=== PATIENT | female | born 1995 | race Caucasian/White ===

== ENCOUNTER 2025-01-07 21:17 | Emergency (ER) | payer OTHER, SELFPAY ==
--- NOTE | ~2025-01-07 | CT_ITS ---
CLINICAL HISTORY: RLQ pain, appy? CT abdomen and pelvis with contrast Comparison: None Findings: The lung bases are clear. The gallbladder is unremarkable. No biliary ductal dilatation. The liver, spleen, pancreas and adrenal glands are unremarkable. Small cortical scar of the upper pole of the left kidney. Normal enhancement of bilateral kidneys with no ureteral stones and no hydronephrosis or hydroureter. No perinephric stranding. No bowel obstruction, pneumoperitoneum, or pneumatosis. The appendix is not identified. Subcentimeter right lower quadrant mesenteric nodes nonspecific. No pericecal inflammatory changes. Uterus appears unremarkable. 2.3 cm and 2.6 cm right ovarian cysts. Small left ovarian follicle. Urinary bladder nearly empty with apparent wall thickening likely due to bladder decompression. Abdominal aorta normal in size. No acute fracture. L3 limbus vertebra. IMPRESSION: 1. Appendix is not identified. No pericecal inflammatory changes. 2. Subcentimeter right lower quadrant lymph nodes nonspecific and could be reactive or represent adenitis. 3. 2.3 cm and 2.6 cm right ovarian cysts. This document has been electronically signed by: Amber Charles MD on 01/08/2025 02:02:35
[2025-01-07 21:24] VITALS: BP 104/62; PULSE 62; RESP 16; TEMP 36.2; O2SAT 98; BMI 19.8
[2025-01-07 22:28] VITALS: BP 103/62; PULSE 57; TEMP 36.8; O2SAT 99
--- NOTE | 2025-01-07 22:53 | PC.NURSE ---
assumed care of pt, abd pain present, IV inserted into L AC no issues, labs obtained,respirations even and unlabored, VSS
[2025-01-07 22:55] LABS: MANUAL DIFF FLAG NO
[2025-01-07 23:17] LABS: Alanine Aminotransferase 14 U/L (0-31); Albumin Level 4.7 g/dL (3.5-5.0); Alkaline Phosphatase 53 U/L (39-117); Anion Gap 11 (12-20); Aspartate Amino Transferase 21 U/L (5-31); Bilirubin Total 0.8 mg/dL (0.0-1.0); Blood Urea Nitrogen 12 mg/dL (9-16); Calcium 9.7 mg/dL (8.4-10.2); Carbon Dioxide 29 mmol/L (22-29); Chloride 104 mmol/L (96-108); Estimated Glomerular Filt Rate > 60; Glucose Random 125 mg/dL (60-115); Lipase 23 U/L (8-78); Potassium 3.8 mmol/L (3.3-5.1); Sodium 140 mmol/L (135-145)
[2025-01-07 23:18] LABS: Basophils Percent Auto 0.3 % (0-2); Eosinophils Percent Auto 0.4 % (0-4); Hematocrit 43.4 % (37.0-47.0); Hemoglobin 15.2 g/dl (12.0-16.0); Imm Gran Abs Auto 0.04 X10*3/uL (0.00-0.03); Imm Gran Pct Auto 0.4 % (0.0-0.4); Lymphocytes Absolute Auto 1.5 X10*3/uL (1.2-4.9); Lymphocytes Percent Auto 13.9 % (20-40); Mean Corpuscular Hemoglobin 30.4 pg (27.0-33.0); Mean Corpuscular Volume 86.8 fL (80.0-98.0); Mean Platelet Volume 9.5 fL (9.4-12.3); Monocytes Absolute Auto 0.7 X10*3/uL (0.1-1.2); Monocytes Percent Auto 6.2 % (2-11); Neutrophils Absolute Auto 8.5 x10*3/uL (2.0-8.3); Neutrophils Percent Auto 78.8 % (45-73); Platelet Count 391 X10*3/uL (160-400); Red Cell Distribution Width 12.7 % (11.0-16.0); White Blood Count 10.8 X10*3/uL (4.8-10.8)
[2025-01-08] MEDS: ondansetron HCL 4 MG/2 ML VIAL IVPUSH (00:38)
[2025-01-08] MEDS: Ketorolac Tromethamine 15 MG/ML VIAL IVPUSH (00:38)
[2025-01-08] MEDS: 0.9 % Sodium Chloride 1,000 ML 999 ML IV (00:38)
[2025-01-08 00:47] LABS: Appearance Urine Clear; Color Urine Yellow; Glucose Urine UA Negative (Negative); Leukocyte Esterase Urine Trace (Negative); Nitrite Urine Negative (Negative); Specific Gravity - Urine 1.015 (1.005-1.025); UMIC TRIGGER UACC YES; Urine Blood Trace (Negative); Urine Ketones 40 mg/dL (Negative); Urine Protein Trace mg/dL (Neg-Trace)
[2025-01-08 00:48] LABS: HCG Quantitative < 2 mIU/mL
[2025-01-08 00:52] LABS: Bacteria Urine Trace (None Seen); Hyaline Casts Urine 0-2 /LPF (0-2); RBC Urine 0-2 /HPF (0-2); UACC Culture Trigger YES
[2025-01-08] MEDS: iohexoL 350 MG/ML 100 ML INFUS..BTL 85 ML IV (01:08)
[2025-01-08 01:28] VITALS: BP 93/47; PULSE 72; RESP 16; TEMP 36.7; O2SAT 98
--- NOTE | 2025-01-08 02:53 | ED_ITS ---
HPI - General Adult General Chief complaint: Abdominal Pain Stated complaint: Abdominal pain Time Seen by Provider: 01/07/25 23:55 Source: patient Limitations: no limitations History of Present Illness ED Provider: Pily Martinez PA-C HPI narrative: 29-year-old female presents with the abdominal pain since this morning. Patient having right lower abdominal discomfort, that radiates to right low back and across to the suprapubic region. Pain worse with movement. The pain also fluctuates in intensity, becoming severe at times. Patient developed episodes of nausea vomiting. Denies history of kidney stones, dysuria or obvious hematuria. Denies history of ovarian cysts. No diarrhea or fever. Related Data Previous Rx's ?Medication ?Instructions ?Recorded ketorolac 10 mg tablet 10 mg PO Q6H PRN pain #20 tabs 01/08/25 Allergies Allergy/AdvReac Type Severity Reaction Status Date / Time amoxicillin AdvReac Anaphylaxis Verified 01/07/25 21:28 balofloxacin AdvReac Hives Verified 01/07/25 21:29 cephalexin [From Keflex] AdvReac Hives Verified 01/07/25 21:29 Review of Systems 2 Review of Systems: Yes all other systems are reviewed and are negative Constitutional: Constitutional: Denies fatigue and Denies fever(s) Cardiovascular: Cardiovascular: Denies chest pain and Denies dyspnea Respiratory: Respiratory: Denies dyspnea Gastrointestinal: Gastrointestinal: Reports abdominal pain, Denies constipation, Denies diarrhea, Reports nausea and Reports vomiting Genitourinary: Genitourinary: Denies hematuria, Denies dysuria, Denies pelvic pain and Denies vaginal discharge Endocrine: Endocrine: Denies fatigue PMF Past Medical History Attestation statement: The following information was validated with the patient. Social History Social History Smoked in Last 30 Days: No Use of substances other than those prescribed or required for medical reasons: Yes Substance Use Type: Hallucinogens Advance Directives: No Do you have a plan to hurt others: No Plan Patient : No Physical Exam ED Vital Signs: Vital Signs - 24 hr 01/07/25 21:24 01/07/25 22:28 01/08/25 01:28 Temperature 97.1 F 98.2 F 98.0 F Pulse Rate 62 57 72 Respiratory Rate 16 16 Blood Pressure 104/62 103/62 93/47 L Pulse Oximetry 98 99 98 Oxygen Delivery Method Room Air Room Air Room Air BMI result Body Mass Index 19.8 Const Other: Alert Orientation/consciousness: patient oriented x3 Resp Effort & Inspection: normal respiratory effort Cardio Other: normal peripheral perfusion GI Other: abdomen is soft, nondistended, mild to moderate tenderness that has focal to the right lower abdomen, no guarding, there was some degree of referred pain from left to right abdomen Skin Other: warm dry no rash Neuro General: patient oriented x3, gait normal, no focal motor deficits and CN's II- XI intact bilaterally Psych Other: cooperative Medications Administered Discontinued Medications Generic Name Dose Route Start Last Admin Trade Name Freq PRN Reason Stop Dose Admin Sodium Chloride 1,000 mls @ 999 mls/hr 01/08/25 00:45 01/08/25 00:38 Ns IV 01/08/25 01:45 999 mls/hr .Q1H1M SARAH Administration Iohexol 85 ml 01/08/25 01:07 01/08/25 01:08 Iohexol 350 Mg/Ml 100 Ml Infus..Btl IV 01/08/25 01:08 85 ml ONCE ONE Administration Ketorolac Tromethamine 15 mg 01/08/25 00:31 01/08/25 00:38 Ketorolac Tromethamine 15 Mg/Ml Vial IVPUSH 01/08/25 00:32 15 mg ONCE ONE Administration Ondansetron HCl 4 mg 01/08/25 00:31 01/08/25 00:38 Ondansetron Hcl 4 Mg/2 Ml Vial IVPUSH 01/08/25 00:32 4 mg ONCE ONE Administration Medical Decision Making Medical Decision Making [facility] Narrative: 29-year-old female presents with the abdominal pain since this morning. Patient having right lower abdominal discomfort, that radiates to right low back and across to the suprapubic region. Pain worse with movement. The pain also fluctuates in intensity, becoming severe at times. Patient developed episodes of nausea vomiting. Denies history of kidney stones, dysuria or obvious hematuria. Denies history of ovarian cysts. No diarrhea or fever. no chronic issues History: Per patient I have considered the following differential diagnoses: Appendicitis, renal colic, torsion, sigmoid diverticulitis Plan: Given distribution of discomfort in nature of symptoms, I am most concerned for appendicitis. We will obtain a CT scan, giving Toradol, Zofran and IV fluid. The patient is having colicky pain, this could be torsion versus renal colic as well, she is passing trace hematuria in her urinalysis. Doubtful to be sigmoid diverticulitis she is not having any diarrhea. I have independently reviewed the following tests: Labs: No overall leukocytosis, left shift noted, no electrolyte abnormality, not , urine not infected CT abdomen and pelvis:MPRESSION: 1. Appendix is not identified. No pericecal inflammatory changes. 2. Subcentimeter right lower quadrant lymph nodes nonspecific and could be reactive or represent adenitis. 3. 2.3 cm and 2.6 cm right ovarian cysts. Lab Data 01/07/25 22:46 01/07/25 22:46 Labs: Lab Results 01/07/25 01/08/25 Range/Units 22:46 00:39 WBC 10.8 (4.8-10.8) X10*3/uL RBC 5.00 (4.20-5.50) X10*6/uL Hgb 15.2 (12.0-16.0) g/dl Hct 43.4 (37.0-47.0) % MCV 86.8 (80.0-98.0) fL MCH 30.4 (27.0-33.0) pg MCHC 35.0 (31.0-35.0) g/dl RDW 12.7 (11.0-16.0) % Plt Count 391 (160-400) X10*3/uL MPV 9.5 (9.4-12.3) fL Immature Gran % (Auto) 0.4 (0.0-0.4) % Neut % (Auto) 78.8 H (45-73) % Lymph % (Auto) 13.9 L (20-40) % [place] % (Auto) 6.2 (2-11) % Eos % (Auto) 0.4 (0-4) % Baso % (Auto) 0.3 (0-2) % Lymph # (Auto) 1.5 (1.2-4.9) X10*3/uL [place] # (Auto) 0.7 (0.1-1.2) X10*3/uL Eos # (Auto) 0.0 (0.0-0.4) X10*3/uL Baso # (Auto) 0.0 (0.0-0.2) X10*3/uL Abs Immat Gran (auto) 0.04 H (0.00-0.03) X10*3/uL Absolute Neuts (auto) 8.5 H (2.0-8.3) x10*3/uL Absolute Nucleated RBC 0.000 (0.0-0.012) X10*3/uL Nucleated RBC % (auto) 0.0 (0.0-0.2) /100WBC Sodium 140 (135-145) mmol/L Potassium 3.8 (3.3-5.1) mmol/L Chloride 104 (96-108) mmol/L Carbon Dioxide 29 (22-29) mmol/L Anion Gap 11 L (12-20) BUN 12 (9-16) mg/dL Creatinine 0.82 (0.5-1.4) mg/dL Estim Creat Clear Calc 95.0 Estimated GFR > 60 Random Glucose 125 H (60-115) mg/dL Calcium 9.7 (8.4-10.2) mg/dL Total Bilirubin 0.8 (0.0-1.0) mg/dL AST 21 (5-31) U/L ALT 14 (0-31) U/L Alkaline Phosphatase 53 (39-117) U/L Total Protein 8.0 (6.5-8.0) g/dL Albumin 4.7 (3.5-5.0) g/dL Lipase 23 (8-78) U/L Beta HCG, Quant < 2 mIU/mL Urine Color Yellow Urine Appearance Clear Urine pH 6.0 (5.0-9.0) Ur Specific [place] 1.015 (1.005-1.025) Urine Protein Trace (Neg-Trace) mg/dL Urine Glucose (UA) Negative (Negative) mg/dL Urine Ketones 40 (Negative) mg/dL Urine Blood Trace H (Negative) Urine Nitrite Negative (Negative) Ur Leukocyte Esterase Trace H (Negative) Urine RBC 0-2 (0-2) /HPF Urine WBC 6-10 H (0-5) /HPF Ur Squamous Epith Cells 3-5 (0-2) /HPF Urine Bacteria Trace (None Seen) Hyaline Casts 0-2 (0-2) /LPF Discharge Plan Discharge Clinical Impression: Ovarian cyst Patient Disposition: Home, Self-Care Instructions: Ovarian Cyst (ED) Additional Instructions: all of your labs were within normal limits. You were found to have 2 ovarian cysts, they measure 2.3 cm and 2.6 cm. See home care instructions. Use the ketorolac as needed for pain, take it with food. You need to follow up with your digital field service technician, they will likely schedule an outpatient transvaginal ultrasound as further assessment of the ovarian cysts. Prescriptions: New ketorolac 10 mg tablet 10 mg PO Q6H PRN (Reason: pain) Qty: 20 0RF Rx Instructions: maximum total duration of 5 days from all oral, intranasal, or parenteral formulations. The patient had an IV dose of toradol here in the emergency room Print Language: Yakut
[2025-01-08 03:11] VITALS: BP 121/75; PULSE 63; RESP 16; TEMP 36.8; O2SAT 99
[2025-01-08 03:12] VITALS: BP 121/75; PULSE 63; RESP 16; TEMP 36.8; O2SAT 99
== END 2025-01-08 03:13 | disposition home or self-care (01) ==
PROVIDERS: Physician Assistant Medical; Emergency Provider Emergency Medicine; PCP Family Medicine
DX: N83.201 Unspecified ovarian cyst, right side (principal); R10.31 Right lower quadrant pain
CPT/HCPCS: 36415; 74177; 80053; 81001; 83690; 84702; 85025; 87086; 87147; 96361; 96374; 96375; 99284; 99285; J1885; J2405; Q9967

== ENCOUNTER → 2025-01-08 00:48 | Outpatient (BNV) | payer OTHER, SELFPAY | PROVIDERS: Emergency Provider Emergency Medicine; PCP Family Medicine; Visit Provider Specialist | DX: N83.291 Other ovarian cyst, right side (principal) | CPT/HCPCS: 74177 ==